=== PATIENT | male | born 1940 | race Caucasian/White ===

== ENCOUNTER 2018-10-16 10:39 | Inpatient (IN) ==
[2018-10-16 11:26] LABS: BASO# 0.02 X1000 (0.0-0.2); BASO% 0.2 % (0.0-0.8); EOS# 0.02 X1000 (0.0-0.7); EOS% 0.2 % (0.0-10.0); HEMATOCRIT 34.7 % (42.0-52.0); IMM GRAN# 0.04 X1000 (0.0-0.04); IMM GRAN% 0.4 % (0.0-0.5); LYMPH# 1.57 X1000 (1.2-3.4); MCH 32.4 PG (27-31); MCHC 31.7 g/dL (33-37); MCV 102.4 FL (81-99); MONO# 0.71 X1000 (0.11-0.59); MONO% 6.4 % (1.7-9.3); NEUT# 8.82 X1000 (1.4-6.5); NEUT% 78.8 % (42.2-75.2); PLT 244 X1000 (130-400); RBC 3.39 XMIL (4.7-6.1); RDW 12.8 % (11.5-14.5); WBC 11.18 X1000 (4.8-10.8)
[2018-10-16 11:28] LABS: INR 1.87; PROTIME 22.9 Seconds (11.0-16.0)
[2018-10-16 11:29] LABS: PTT 35.3 Seconds (22.3-41.8)
--- NOTE | 2018-10-16 11:32 | Diag Imaging Result Doc PS360 ---
EXAM: CHEST-2 VIEWS HISTORY: syncope TECHNIQUE: Chest three views COMPARISON: 10/12/2018 FINDINGS: The lungs are well expanded. The heart is mildly enlarged. The vessels are not distended. There are no infiltrates. Likely fibrosis in the lower lungs. No pleural effusions. Old right rib fracture. Arthritis to each shoulder. Mild scoliosis. IMPRESSION: No acute abnormality. Electronically signed by Preet Garcia 10/16/2018 11:30 AM
--- NOTE | 2018-10-16 12:00 | EKG Report ---
Test Performed on : 10/16/2018 11:07:56 AM Test Reason : syncope Blood Pressure : / mmHG Vent. Rate : 077 BPM Atrial Rate : 068 BPM P-R Int : 000 ms QRS Dur : 132 ms QT Int : 402 ms P-R-T Axes : 000 -68 -24 degrees QTc Int : 454 ms Atrial fibrillation. Left axis deviation Right bundle branch block Abnormal ECG No previous ECGs available Unconfirmed Result
[2018-10-16 12:03] LABS: ALB/GLOB RATIO 1.8; CALCIUM 8.9 mg/dL (8.8-10.2); CREATININE 1.5 mg/dL (0.7-1.2); POTASSIUM 5.8 mmol/L (3.5-5.1); TOTAL BILIRUBIN 0.32 mg/dL (0.20-1.00); TOTAL PROTEIN 6.2 g/dL (6.3-8.3)
[2018-10-16] MEDS ORDERED: XYLOCAINE-MPF 2% ONE (12:17)
[2018-10-16] MEDS ORDERED: QUELICIN (DOSE) ONE (12:17)
[2018-10-16] MEDS ORDERED: DIPRIVAN 1% ONE (12:17)
[2018-10-16] MEDS ORDERED: PROTONIX IV SCH (13:15)
--- NOTE | 2018-10-16 13:19 | OPERATIVE NOTE ---
PROCEDURE DATE: 10/16/2018 PROCEDURE: Esophagogastroduodenoscopy with injection therapy and heater probe coagulation. PREOPERATIVE DIAGNOSIS: GI bleed. POSTOPERATIVE DIAGNOSIS: Hien-Wilkinson tear with active oozing. DETAILS OF OPERATION: After informed consent and adequate intravenous sedation and endotracheal intubation, the scope introduced into the esophagus. The patient has fresh blood in the esophagus. At this point at the GE junction, the patient has a 2 cm tear with exposed vessel with a small clot. The rest of the stomach and duodenum normal other than old blood in the stomach. At this point, this was injected with epinephrine and cauterized using heater probe. At the end of procedure, there was no active bleeding. The scope was withdrawn. The patient tolerated the procedure well without any immediate complication. cc: Delma Agosto MD
[2018-10-16] MEDS: MORPHINE ONE ×2 (13:48→13:54)
[2018-10-16 14:11] LABS: HEMATOCRIT 34.3 % (42.0-52.0); HEMOGLOBIN 10.9 g/dL (14.0-18.0)
[2018-10-16] MEDS ORDERED: D5 1/2 NS 1,000 ML ONE (14:24)
[2018-10-16] MEDS: D5 1/2 NS 1,000 ML IV SCH ×2 (14:27→16:14)
[2018-10-16] MEDS: CARAFATE PO SCH ×2 (16:18→22:43)
[2018-10-16] MEDS: KEFZOL 1 GM/D5W 1 GM/50 ML IVPB IV SCH ×2 (16:18→22:46)
--- NOTE | 2018-10-16 16:46 | CARDIOLOGY CONSULTATION ---
DATE: 10/16/2017 REASON FOR CONSULTATION: The patient is admitted with Hien-Wilkinson tear. He has history of atrial fibrillation. HISTORY: Mr. Pablo is a 78-year-old gentleman who had been doing well. He has history of diverticulosis. This morning, he had 3 episodes of vomiting blood. He came to the emergency room and had an upper GI endoscopy with injection and heater probe coagulation of Hien-Wilkinson tear with active oozing. From a cardiac standpoint, there are no palpitations. Denies chest pain suggestive of angina. He has been taking his medications regularly. There is no orthopnea or paroxysmal nocturnal dyspnea. PAST MEDICAL HISTORY: 1. Atrial fibrillation. 2. Anticoagulation therapy. 3. Hypertension. 4. Hyperlipidemia. 5. Hypothyroidism. 6. Obstructive sleep apnea. 7. Diverticulosis. HOME MEDICATIONS: 1. Zoloft. 2. Lupron shots. 3. Flomax 0.4. 4. Diltiazem 180. 5. Levothyroxine 200 mcg. 6. Multaq 400 mg b.i.d. 7. Xarelto 20 mg. 8. Coreg 3.125 b.i.d. ALLERGIES: He is not known to be allergic to any medication. PHYSICAL EXAMINATION: Vital Signs: Blood pressure was 148/87. Heart: First and second heart sounds were heard. Jugular venous pressure was normal. There was a faint systolic murmur. There was no S3 gallop. Respiratory System: Normal air entry. There is no crepitations or rhonchi. Abdomen: Some mild tenderness in the epigastric region. Bowel sounds heard. Central nervous system: Alert and oriented and was moving all 4 extremities. Extremities: Examination of extremities revealed no pedal edema. HEENT: Atraumatic, normocephalic. Pupils were equal and reacting to light. Electrocardiogram revealed atrial fibrillation. Right bundle branch block. Rate under control. ASSESSMENT AND PLAN: Mr. [place] Pablo is a 78-year-old gentleman with history of diverticulosis. He is admitted with gastrointestinal bleed. He has Hien-Wilkinson tear and has undergone cauterization because of active bleeding. RECOMMENDATIONS: 1. From a cardiac standpoint, for hypertension, restart his home medications. 2. For his atrial fibrillation, he has been on Multaq and Cardizem. I have not made any changes. 3. As far as anticoagulation therapy is concerned, recent gastrointestinal bleed, his Xarelto has been held. 4. He has history of hypothyroidism. Continue with levothyroxine. I have not made any other changes to his medication. His last echocardiogram revealed ejection fraction of 40% to 45% percent with [id number] mitral regurgitation. Thank you for the consult. We will follow hospital course. cc: MD Justin Davila MD
[2018-10-16 19:06] LABS: HEMATOCRIT 30.4 % (42.0-52.0); HEMOGLOBIN 9.7 g/dL (14.0-18.0)
[2018-10-16] MEDS: VITAMIN B-12 PO SCH (22:43)
[2018-10-16] MEDS: CARDIZEM CD PO SCH (22:45)
[2018-10-16] MEDS: FLOMAX PO SCH (22:45)
[2018-10-16] MEDS: MULTAQ PO SCH (22:45)
[2018-10-16] MEDS: COREG PO SCH (22:45)
[2018-10-16] MEDS: SODIUM CHLORIDE 0.9% INJ SCH (22:46)
[2018-10-16] MEDS: PERIDEX MT SCH (22:51)
[2018-10-17 01:01] LABS: HEMATOCRIT 27.8 % (42.0-52.0); HEMOGLOBIN 8.9 g/dL (14.0-18.0)
[2018-10-17] MEDS: D5 1/2 NS 1,000 ML IV SCH ×2 (01:15→11:05)
--- NOTE | 2018-10-17 04:02 | CONSULTATION ---
DATE OF CONSULTATION: 10/16/2018 REFERRING PHYSICIAN: Justin Yanez MD. HISTORY OF PRESENT ILLNESS: Mr. [place] Pablo is a 77-year-old gentleman with a history of multiple medical problems including paroxysmal atrial fibrillation, essential hypertension, obstructive sleep apnea, post-procedural hypothyroidism, depression, and a history of prostate cancer status post radiation therapy who is well known to me. He presented to the ER complaining of increasing reflux, sour brash, nausea, vomiting, and passing dark tarry stools. Dr. Agosto performed an EGD which demonstrated a Hien-Wilkinson tear with oozing, he cauterized the small vessel. He has a history of paroxysmal atrial fibrillation. He has converted back to atrial fibrillation. His heart rate has been well controlled in the 70s and 80s. He denies any chest pain, palpitations or anginal equivalents. PAST MEDICAL HISTORY: As above. PAST SURGICAL HISTORY: Cataract surgery, total thyroidectomy, left total knee, bilateral total shoulders. ALLERGIES: No known drug allergies. FAMILY HISTORY: His father in an accident. His mother had known ischemic heart disease and hypertension. Maternal grandfather had Alzheimer's dementia. Maternal grandmother had diabetes. SOCIAL HISTORY: He is a former smoker. He does consume alcoholic beverages. He is the primary caregiver of his who has dementia. REVIEW OF SYSTEMS: He denies any recent weight gain or weight loss.HEENT: No loss of visual or auditory acuity. He is somewhat hard of hearing. Cardiovascular: He has a history of paroxysmal atrial fibrillation. Pulmonary: No shortness of breath, PND, orthopnea. Gastrointestinal: See HPI. Endocrine: No polyuria. No polydipsia. No cold or heat intolerance. Skin: No easy bruisability. Genitourinary: No leakage of urine with coughing or laughing. Neurologic: No migraines or seizures. PHYSICAL EXAMINATION: General: This is an elderly, frail, 78-year-old gentleman in no apparent distress. Vital signs: Temperature 98.2 degrees, pulse 83, respirations 20, BP 148/87. Neck: Supple. Thyroid is surgically absent. No carotid bruits. Cardiovascular: Irregularly irregular. Lungs: Clear. Abdomen: Soft, nontender, with active bowel sounds. No hepatosplenomegaly. No abdominal bruits. Extremities: Without edema. Skin: No palpable purpura. Neurologic: He has decreased light touch in the distal extremities bilaterally. ASSESSMENT AND PLAN: 1. Acute blood loss anemia secondary to upper gastrointestinal bleed due to a Hien-Wilkinson tear. We will begin pantoprazole 40 mg intravenous daily and Carafate slurry 1 g every 6 hours. We will begin clear liquid diet. We will follow his blood counts and transfuse as indicated. 2. Paroxysmal atrial fibrillation. He has converted back into atrial fibrillation. His heart rate is well controlled on Coreg and diltiazem. Because of the recent upper gastrointestinal bleed we will hold the Xarelto. The risk for worsening bleeding is greater than the risk of stroke. 3. Post-procedural hypothyroidism. We will check a thyroid stimulating hormone and free T4 and adjust the dosage of levothyroxine as needed. cc: MD Justin Kincaid MD
[2018-10-17 06:25] LABS: HEMATOCRIT 26.9 % (42.0-52.0); HEMOGLOBIN 8.6 g/dL (14.0-18.0); MCH 32.8 PG (27-31); MCV 102.7 FL (81-99); MPV 9.5 FL (7.4-10.4); RBC 2.62 XMIL (4.7-6.1); RDW 12.9 % (11.5-14.5); WBC 9.31 X1000 (4.8-10.8)
[2018-10-17] MEDS: SYNTHROID PO SCH (06:31)
[2018-10-17] MEDS: CARAFATE PO SCH ×4 (06:31→21:16)
[2018-10-17] MEDS: KEFZOL 1 GM/D5W 1 GM/50 ML IVPB IV SCH ×3 (06:32→22:19)
--- NOTE | 2018-10-17 06:55 | Diag Imaging Result Doc PS360 ---
EXAM: CHEST-PORTABLE HISTORY: GI BLEED TECHNIQUE: Portable chest, single view COMPARISON: 10/16/2018 FINDINGS: The lungs are well expanded. The heart is not enlarged. The vessels are not distended. There are no infiltrates. No effusion identified. IMPRESSION: No acute abnormality. Electronically signed by Preet Garcia 10/17/2018 6:53 AM
[2018-10-17 07:03] LABS: ALB/GLOB RATIO 1.1; ALBUMIN 3.4 g/dL (3.5-5.0); CALCIUM 8.7 mg/dL (8.8-10.2); CREATININE 1.3 mg/dL (0.7-1.2); POTASSIUM 4.3 mmol/L (3.5-5.1); TOTAL BILIRUBIN 0.37 mg/dL (0.20-1.00); TOTAL PROTEIN 6.4 g/dL (6.3-8.3)
[2018-10-17] MEDS ORDERED: NS 500 ML IV SCH (08:00)
[2018-10-17] MEDS: COREG PO SCH ×2 (08:21→21:16)
[2018-10-17] MEDS: MULTAQ PO SCH ×2 (08:21→21:16)
[2018-10-17] MEDS: CYMBALTA PO SCH (08:21)
[2018-10-17] MEDS: PROTONIX IV SCH ×2 (08:21→21:17)
[2018-10-17] MEDS: SODIUM CHLORIDE 0.9% INJ SCH ×2 (08:22→21:17)
[2018-10-17] MEDS: LIBRIUM PO SCH ×4 (09:00→18:05)
[2018-10-17] MEDS: PERIDEX MT SCH ×2 (09:01→21:17)
--- NOTE | 2018-10-17 09:02 | EKG Report ---
Test Performed on : 10/17/2018 08:17:54 AM Test Reason : GI BLEED Blood Pressure : / mmHG Vent. Rate : 082 BPM Atrial Rate : 086 BPM P-R Int : 000 ms QRS Dur : 152 ms QT Int : 406 ms P-R-T Axes : 000 -59 005 degrees QTc Int : 474 ms Atrial fibrillation. Left axis deviation Right bundle branch block Abnormal ECG When compared with ECG of 16-OCT-2018 15:17, (Unconfirmed) No significant change was found Confirmed by Luisa GARCIA, Mahamed Cantu ([id number]) on 10/17/2018 7:40:12 PM
--- NOTE | 2018-10-17 11:09 | PROGRESS NOTE ---
DATE: 10/17/2018 SUBJECTIVE: Patient is resting in bed. He is feeling better. He denies any nausea or vomiting. He is receiving blood transfusion this morning. OBJECTIVE: Vital signs: Temperature 98.1 degrees, pulse of 81, respiratory rate 20, blood pressure 119/80, saturating 98% on 2 liters nasal cannula. General Appearance: Moderately built, moderately-nourished, lying in bed, in no acute distress. HEENT: Pale conjunctivae. No icterus. Neck: Supple. Abdomen: Soft, nontender, nondistended. No guarding. Extremities: No cyanosis or clubbing. Neuro: Alert, awake, oriented x3. LABS: Hemoglobin and hematocrit is 8.6 and 26.9, white count of 9.31, platelet count of 196. Sodium of 138, potassium 4.3, chloride 104, bicarb 26, anion of 8, BUN of 47, creatinine 1.3, glucose of 104, calcium is 8.7, total bilirubin is 0.37. AST 17, ALT 13, alkaline phosphatase 34, total protein 6.4, albumin 3.4. PSA 6.3, CEA 3.9. IMPRESSION AND PLAN: 1. Gastrointestinal bleeding secondary to Hien-Wilkinson tear. He will continue on Protonix. Will increase Protonix twice daily and give him Carafate 1 gram every 6 hours. We will keep a close eye on the blood counts and transfuse as needed. He is currently receiving blood transfusion. 2. Paroxysmal atrial fibrillation. He had been on Xarelto, which was withheld yesterday. We will watch him closely for any signs of active bleeding. 3. We will keep him on full liquid diet. He will avoid any tea, coffee, and sodas. 4. Recent mild sigmoid colonic diverticulitis was noted on CT scan on 10/12/2018. In this regard, he was treated as an outpatient with antibiotics. He is on cefazolin intravenous q.8. 5. Diffuse hepatic steatosis on CT scan. The patient needs to lose weight. His body mass index is 32. His liver enzymes are normal, though. Above plan of care for the patient and all questions were answered. Please call us with any further questions. cc: MD Justin Walden MD M. Neel Roberts, MD
[2018-10-17] MEDS: THIAMINE 100 MG in NS 50 ML IV SCH (11:20)
--- NOTE | 2018-10-17 12:18 | PROGRESS NOTE ---
DATE: 10/17/2018 SUBJECTIVE: Mr. Pablo was admitted to [facility] with an upper gastrointestinal bleed secondary to a Hien-Wilkinson tear. He underwent cauterization yesterday. His blood counts on admission were 10.9 and 34.3. His hemoglobin and hematocrit this morning were 8.6 and 26.9. He has not had any further melena. He is tolerating a clear liquid diet without nausea or vomiting. He does have a history of paroxysmal atrial fibrillation. He remains in atrial fibrillation. Heart rate has been in the 70s and 80s on Multaq and Coreg. We are currently holding the Xarelto. OBJECTIVE: Vital signs: Temperature 98.1, pulse 78, respirations 20, BP 119/83. CV: Irregularly, irregular. Lungs: Clear. Abdomen: Soft, nontender, with active bowel sounds. ASSESSMENT AND PLAN: 1. Acute blood loss anemia secondary to upper gastrointestinal bleed due to a Hien-Wilkinson tear. We will continue intravenous pantoprazole, but will try to transition him to oral pantoprazole with Carafate. I will advance him to a full liquid diet. Dr. Yanez ordered 2 units of blood. We will recheck a hemoglobin and hematocrit in the morning. If he has no further bleeding, is able to tolerate his diet, and his blood counts remained stable, I am hopeful that we can discharge him home in the morning. 2. Paroxysmal atrial fibrillation. He has converted back into atrial fibrillation. His heart rate remains in the 70s and 80s. We will continue Coreg and Multaq. I would like to hold the Xarelto for at least 1 week because of the recent bleeding. cc: MD Justin Kincaid MD
[2018-10-17 18:36] LABS: HEMATOCRIT 35.9 % (42.0-52.0); HEMOGLOBIN 11.5 g/dL (14.0-18.0)
[2018-10-17] MEDS: ICAR-C PO SCH (21:16)
[2018-10-17] MEDS: CARDIZEM CD PO SCH (21:16)
[2018-10-17] MEDS: FLOMAX PO SCH (21:16)
[2018-10-17] MEDS: VITAMIN B-12 PO SCH (21:16)
[2018-10-17] MEDS ORDERED: BENADRYL PO ONE (21:29)
[2018-10-18] MEDS: KEFZOL 1 GM/D5W 1 GM/50 ML IVPB IV SCH ×2 (00:35→05:59)
[2018-10-18] MEDS: D5 1/2 NS 1,000 ML IV SCH (05:59)
[2018-10-18] MEDS: SYNTHROID PO SCH (05:59)
[2018-10-18] MEDS: CARAFATE PO SCH (05:59)
[2018-10-18 06:53] LABS: CREATININE 1.2 mg/dL (0.7-1.2); POTASSIUM 4.6 mmol/L (3.5-5.1)
[2018-10-18 07:07] LABS: BASO# 0.02 X1000 (0.0-0.2); BASO% 0.2 % (0.0-0.8); EOS# 0.16 X1000 (0.0-0.7); EOS% 1.9 % (0.0-10.0); HEMATOCRIT 33.7 % (42.0-52.0); IMM GRAN# 0.02 X1000 (0.0-0.04); IMM GRAN% 0.2 % (0.0-0.5); LYMPH# 1.52 X1000 (1.2-3.4); LYMPH% 18.1 % (20.5-51.1); MCH 31.8 PG (27-31); MCHC 32.6 g/dL (33-37); MCV 97.4 FL (81-99); MONO# 0.56 X1000 (0.11-0.59); MONO% 6.7 % (1.7-9.3); MPV 9.2 FL (7.4-10.4); NEUT# 6.13 X1000 (1.4-6.5); NEUT% 72.9 % (42.2-75.2); PLT 213 X1000 (130-400); RBC 3.46 XMIL (4.7-6.1); RDW 16.3 % (11.5-14.5); WBC 8.41 X1000 (4.8-10.8)
[2018-10-18 07:59] VITALS: BP 122/78
[2018-10-18] MEDS: PERIDEX MT SCH (08:11)
[2018-10-18] MEDS: PROTONIX IV SCH (08:11)
[2018-10-18] MEDS: SODIUM CHLORIDE 0.9% INJ SCH (08:11)
[2018-10-18] MEDS: CYMBALTA PO SCH (08:12)
[2018-10-18] MEDS: MULTAQ PO SCH (08:12)
[2018-10-18] MEDS: THIAMINE 100 MG in NS 50 ML IV SCH (08:12)
[2018-10-18] MEDS: ICAR-C PO SCH (08:12)
[2018-10-18] MEDS: COREG PO SCH (08:12)
[2018-10-18] MEDS: LIBRIUM PO SCH (08:12)
[2018-10-18] MEDS ORDERED: PREVNAR 13 IM ONE (09:00)
[2018-10-18] MEDS ORDERED: PROTONIX PO SCH (09:00)
[2018-10-18] MEDS ORDERED: CENTRUM SILVER PO SCH (09:00)
--- NOTE | 2018-10-19 10:38 | DISCHARGE SUMMARY ---
ADMISSION DATE: 10/16/2018 DISCHARGE DATE: 10/18/2018 DISCHARGE DIAGNOSES: 1. Acute blood loss anemia. 2. Acute upper gastrointestinal bleed secondary to a Hien Wilkinson tear. 3. Essential hypertension. 4. Previous history of tobacco abuse. 5. Postprocedural hypothyroidism. 6. Paroxysmal atrial fibrillation. DISCHARGE INSTRUCTIONS: 1. Return to clinic in 1 week to see me, Dr. Zachary Dominique, in anticipation of a transition of care visit. 2. Activity as tolerated. 3. GI soft diet. MEDICATIONS: Icar C 1 p.o. b.i.d. Multivitamin 1 p.o. daily. Pantoprazole 40 mg b.i.d. Carafate 1 g q.6 hours. Coreg 3.125 mg b.i.d. Vitamin B12 monthly. Multaq 400 mg b.i.d. Synthroid 200 mcg daily. Cymbalta 30 mg daily. Diltiazem 180 mg daily. He will hold Xarelto 20 mg daily for 1 week and resume. Flomax 0.4 mg daily. DISCHARGE PHYSICAL EXAMINATION: General: This is a well-developed, well-nourished, 78-year-old gentleman in no apparent distress. Vitals: He is afebrile. Vital signs are stable. Cardiovascular: Irregularly, irregular. Lungs: Clear. Abdomen: Soft, nontender, with active bowel sounds. COURSE: Mr. [place] Pablo was admitted to [facility] with acute blood loss anemia secondary to an upper GI bleed due to a Hien Wilkinson tear. He underwent successful cauterization of the bleeding vessel. His initial hemoglobin and hematocrit were 10.[address] Yanez transferred 2 units of packed red blood cells. His hemoglobin and hematocrit were 11.0 and 33.7 at the time of discharge. We started a clear liquid diet and advanced his diet as tolerated. We increased the pantoprazole to 40 mg b.i.d. and added Carafate. He was tolerating a full liquid diet without nausea, vomiting, or abdominal pain. He had no further episodes of bleeding. His blood counts were stable. He was felt stable for discharge. He does have a history of paroxysmal atrial fibrillation. He converted back to atrial fibrillation. His heart rate was well controlled on Multaq and Coreg. We held the Xarelto because of the bleeding complications. We have asked him to hold the Xarelto for an additional week and he may resume it on 10/25/2018. He was noted to have an elevated CEA. His chest x-ray was clear. We will make arrangements for him to have a colonoscopy as an outpatient with Dr. Yanez. cc: MD Justin Kincaid MD
== END 2018-10-18 09:45 | disposition home or self-care (01) | DRG 369 ==
LOC: ED 10:39 → 4N 10:39 → OBSVTOIN 13:08
PROVIDERS: ADMIT Surgery; ATTEND Surgery
PROC: EN.HEAT (2018-10-16 12:30)
CPT/HCPCS: 36430; 71010; 71020; 71045; 71046; 80048; 80053; 82378; 84153; 84484; 85014; 85018; 85025; 85027; 85610; 85730; 86850; 86900; 86901; 86920; 93005; 93010; 94761; 94799; 99285; A9270; C9113; G0103; J0330; J0690; J2270; J3411; J7040; P9016; S0164; XXXXX